=== PATIENT | female | born 1980 | race Caucasian/White ===

== ENCOUNTER 2017-11-25 22:02 | Emergency (ER) | payer SELFPAY, OTHER | END 2017-11-26 03:45 | disposition home or self-care (01) | LOC: FTE 22:02 | DX: L08.89 Other specified local infections of the skin and subcutaneous tissue (principal); B95.62 Methicillin resistant Staphylococcus aureus infection as the cause of diseases classified elsewhere | CPT/HCPCS: 99283 ==